=== PATIENT | female | born 1985 | race Hispanic/Latino ===

== ENCOUNTER 2023-01-02 12:24 | Emergency (ER) | payer OTHER, BC ==
[~2023-01-02] VITALS: Ht 170.2 cm; Wt 77.1 kg
[2023-01-02 13:17] VITALS: BP 134/72
[2023-01-02] MEDS: IBUPROFEN 600 MG TABLET PO ONE (14:34)
[2023-01-02 14:48] LABS: APPEARANCE,URINE CLEAR (CLEAR); BILIRUBIN,URINE NEGATIVE (NEGATIVE); COLOR,URINE COLORLESS (YELLOW); GLUCOSE, URINE (UA) NEGATIVE (NEGATIVE); KETONES,URINE NEGATIVE (NEGATIVE); LEUKOCYTE ESTERASE ,URINE 75 Leu/uL (NEGATIVE); NITRATE,URINE NEGATIVE (NEGATIVE); OCCULT BLOOD,URINE SMALL (NEGATIVE); PROTEIN,URINE NEGATIVE (NEGATIVE); UROBILINOGEN,URINE 0.2 mg/dL (0.2-1.0)
[2023-01-02 14:50] LABS: HCG,QUALITATIVE URINE NEGATIVE (NEGATIVE)
[2023-01-02 16:05] LABS: BACTERIA,URINE RARE /HPF (None Seen); MUCUS,URINE RARE LPF (None Seen); SQUAMOUS EPITHELIAL CELL,UR RARE /HPF (0-2)
[2023-01-02] MEDS ORDERED: IBUP-2070 PO (16:09)
[2023-01-02] MEDS ORDERED: CYCL5TAB PO (16:09)
== END 2023-01-02 16:30 | disposition home or self-care (01) ==
LOC: EDH 12:24
DX: M54.2 Cervicalgia (principal); M25.561 Pain in right knee; M79.631 Pain in right forearm; Z79.1 Long term (current) use of non-steroidal anti-inflammatories (NSAID); V89.2XXA Person injured in unspecified motor-vehicle accident, traffic, initial encounter; Y93.89 Activity, other specified; Y92.89 Other specified places as the place of occurrence of the external cause; Y99.8 Other external cause status
CPT/HCPCS: 70450; 72125; 81001; 81025; 87088